=== PATIENT | male | born 1935 | race Caucasian/White ===

== ENCOUNTER → 2017-05-18 07:42 | Outpatient (CLI) | payer MEDICARE, BC ==
[2016-07-18 13:18] VITALS: BMI 22.1
[~2017-05-18 07:42] MED LIST: ATROVENT 0.02%2.5 ML UPD; CARDIZEM30 MG PO; CELEXA20 MG PO; COZAAR50 MG PO; DALIRESP500 MCG PO; FLUTICASONE PRO16 GM NASAL; LASIX20 MG PO; LEVOXYL125 MCG PO; MUCINEX DM ER1 EAC1 PO; OMEPRAZOLE20 M1 PO; OMNICEF300 MG PO; POTASSIUM99 M1; PREDNISONE10 MG PO; PRILOSEC20 MG PO; PROSCAR5 MG PO; PriLOSEC PO; SINGULAIR10 MG PO; XOPENEX 1.1.25 MG/3 UPD
== END | disposition home or self-care (01) ==
LOC: D.RT 02-25 08:00 → D.RAD 02-25 09:00 → D.RT 07:42
DX: J44.9 Chronic obstructive pulmonary disease, unspecified (principal)

== ENCOUNTER 2018-05-09 03:12 | Emergency (ER) | payer MEDICARE, BC ==
[~2018-05-09] VITALS: Ht 174 cm; Wt 72.7 kg
[2018-05-09 03:16] VITALS: Ht 174 cm; Wt 72.7 kg
[2018-05-09 03:39] VITALS: BP 151/62
[2018-05-09 03:58] LABS: BASOPHILS 0.1 % (0-2); EOSINOPHILS 0.5 % (0-7); HEMATOCRIT 44.1 % (42.0-54.0); HEMOGLOBIN 15.1 g/dL (13.5-17.5); IMMATURE GRANULOCYTES 1.1 % (0-5); LYMPHOCYTES 23.1 % (15-50); MCH 34.4 pg (26.0-34.0); MCHC 34.2 g/dL (31.0-37.0); MCV 100.5 fL (80.0-100.0); MEAN PLATELET VOLUME 9.8 fL (7.4-10.4); MONOCYTES 10.3 % (2-11); NEUTROPHILS 64.9 % (40-80); PLATELET COUNT 158 10x3/uL (130-400); RBC 4.39 10x6/uL (4.20-6.10); WBC 8.4 10x3/uL (4.8-10.8)
[2018-05-09] MEDS ORDERED: XANAX0.5 MG PO (04:17)
[2018-05-09 04:25] LABS: ALBUMIN 3.3 g/dL (3.4-5.0); ALKALINE PHOSPHATASE 82 U/L (46-116); ALT (SGPT) 21 U/L (10-68); BILIRUBIN - TOTAL 0.73 mg/dL (0.2-1.3); CALC OSMOLALITY 280 mosm/kg (275-300); CALCIUM 8.1 mg/dL (8.5-10.1); CARBON DIOXIDE 29.2 mmol/L (21.0-32.0); CHLORIDE - SERUM 101 mmol/L (98-107); CREATININE - SERUM 0.9 mg/dL (0.6-1.3); POTASSIUM - SERUM 4.3 mmol/L (3.5-5.1); PROTEIN - SERUM 6.2 g/dL (6.4-8.2); SODIUM 138 mmol/L (136-145); UREA NITROGEN 28 mg/dL (7-18); eGFR NON AFRICAN AMERICAN 86 mL/min (90-120)
[2018-05-09 04:27] LABS: GLUCOSE 88 mg/dL (74-106)
[2018-05-10] MEDS ORDERED: ULTRAM50 MG PO (05:56)
[2018-05-10] MEDS ORDERED: CHERATUSSIN AC473 ML PO (05:56)
== END 2018-05-09 05:09 | disposition home or self-care (01) ==
LOC: D.ER 03:12
PROVIDERS: Emergency Medicine
DX: J44.9 Chronic obstructive pulmonary disease, unspecified (principal); F41.9 Anxiety disorder, unspecified; I48.91 Unspecified atrial fibrillation; E07.9 Disorder of thyroid, unspecified; I10 Essential (primary) hypertension

== ENCOUNTER 2018-05-10 03:38 | Emergency (ER) | payer MEDICARE, BC ==
[~2018-05-10] VITALS: Ht 174 cm; Wt 72.7 kg
[~2018-05-10 03:38] MED LIST changes: +XANAX0.5 MG PO
[2018-05-10 03:39] VITALS: Ht 174 cm; Wt 72.7 kg
[2018-05-10] MEDS ORDERED: ULTRAM50 MG PO (05:56)
[2018-05-10] MEDS ORDERED: CHERATUSSIN AC473 ML PO (05:56)
[2018-05-10 06:18] VITALS: BP 129/74
== END 2018-05-10 06:19 | disposition home or self-care (01) ==
LOC: D.ER 03:38
DX: M94.0 Chondrocostal junction syndrome [Tietze] (principal); E07.9 Disorder of thyroid, unspecified; I10 Essential (primary) hypertension; J44.9 Chronic obstructive pulmonary disease, unspecified; F17.200 Nicotine dependence, unspecified, uncomplicated